=== PATIENT | male | born 1995 ===

== ENCOUNTER 2021-02-01 19:16 | Emergency (ER) | payer SELFPAY ==
[2021-02-01] MEDS ORDERED: BENZONATATE 100 MG CAP PO ONE (21:53)
[2021-02-01] MEDS ORDERED: ACETAMINOPHEN 325 MG TABLET ONE (21:54)
--- NOTE | 2021-02-01 21:55 | RAD REPORT ---
EXAM DESCRIPTION: RAD - Chest Single View - 02/01/2021 9:36 pm CLINICAL HISTORY: COUGH COMPARISON: None TECHNIQUE: AP portable chest image was obtained 02/01/2021 9:36 pm . FINDINGS: Focal airspace opacification present in the right upper lobe and to a lesser degree in the lower left lung field. Trachea is midline. Minimal increase lung parenchymal markings in the medial right base. Heart and vasculature are normal. No measurable pleural effusion and no pneumothorax. No acute bony abnormality seen. No acute aortic findings suspected. IMPRESSION: Bilateral pneumonia. Pattern is nonspecific. In the current clinical environment, COVID-19 pneumonia would be a primary co nsideration and can be correlated testing.
--- NOTE | 2021-02-01 22:16 | ER ---
Nurse's Notes [facility] Name: Stefano Maldonado Age: 25 yrs Sex: Male : 1995 Arrival Date: 02/01/2021 Time: 19:20 Bed 27 Private MD: Diagnosis: Other viral pneumonia Presentation: 02/01 20:06 Chief complaint: Patient states: Pt tested Positive for Covid on 01/28/21, was tested vg[facility] in [place]. About two days ago pt stated started feeling Shortness of breath, states dry cough. Pt stated "I have to lay on my back to be able to breath, if I lay on either side I start coughing and having trouble breathing.". Coronavirus screen: Client denies travel out of the [place] in the last 14 days. Client presents with at least one sign or symptom that may indicate coronavirus-19. Standard/surgical mask placed on the client. Ebola Screen: Patient negative for fever greater than or equal to 101.5 degrees Fahrenheit, and additional compatible Ebola Virus Disease symptoms. Initial Sepsis Screen: Does the patient meet any 2 criteria? No. Patient's initial sepsis screen is negative. Does the patient have a suspected source of infection? No. Patient's initial sepsis screen is negative. Risk Assessment: Do you want to hurt yourself or someone else? Patient reports no desire to harm self or others. Onset of symptoms was January 30, 2021. 20:06 Method Of Arrival: Ambulatory vg1 20:06 Acuity: BK 3 vg1 Triage Assessment: 20:09 General: Appears in no apparent distress. comfortable, Behavior is calm, cooperative. vg1 Pain: Denies pain. Respiratory: Reports shortness of breath on exertion cough that is dry, Airway is patent Respiratory effort is even, unlabored, Onset: The symptoms/episode began/occurred 01/30/21, the patient has mild shortness of breath. Historical: - Allergies: 20:09 No Known Allergies; vg1 - Home Meds: 20:09 None [Active]; vg1 - PMHx: 20:09 None; vg1 - Immunization history:: Adult Immunizations up to date. - Social history:: Smoking status: Patient denies any tobacco usage or history of. Screenin:13 Abuse screen: Denies threats or abuse. Denies injuries from another. Nutritional zb screening: No deficits noted. Tuberculosis screening: No symptoms or risk factors identified. Fall Risk None identified. Assessment: 21:13 General: Appears in no apparent distress. Behavior is calm, cooperative, Reports zb feeling ill for > 3 days, fatigue for >3 days. Pain: Complains of pain in forehead Pain currently is 0 out of 10 on a pain scale. at worst was 6 out of 10 on a pain scale. Quality of pain is described as aching. Neuro: Level of Consciousness is awake, alert, obeys commands, Oriented to person, place, time. Cardiovascular: Reports fatigue, nausea, shortness of breath, Denies chest pain, Capillary refill < 3 seconds Patient's skin is warm and dry. Rhythm is regular. Respiratory: Reports shortness of breath at rest Airway is patent Respiratory effort is even, unlabored, Breath sounds are diminished Onset: The symptoms/episode began/occurred 4 days ago , the patient has mild shortness of breath. GI: Reports diarrhea, nausea, vomiting. Derm: Skin is intact, is healthy with good turgor, Skin is normal. Musculoskeletal: Range of motion: intact in all extremities. 21:17 Reassessment: ECP at bedside. zb 22:15 Reassessment: Patient appears in no apparent distress at this time. Patient and/or zb family updated on plan of care and expected duration. Pain level reassessed. Patient is alert, oriented x 3, equal unlabored respirations, skin warm/dry/pink. ECP at bedside discussing results. Vital Signs: 20:06 BP 132 / 81; Pulse 115; Resp 20; Temp 99.9; Pulse Ox 96% on R/A; Weight 77.11 kg; vg1 Height 5 ft. 8 in. (172.72 cm); Pain 0/10; 21:16 BP 136 / 75; Pulse 91; Resp 16; Pulse Ox 100% on R/A; zb 22:14 BP 110 / 70; Pulse 103; Resp 20; Pulse Ox 98% ; zb 20:06 Body Mass Index 25.85 (77.11 kg, 172.72 cm) vg1 ED Course: 19:20 Patient arrived in ED. wm 20:09 Triage completed. vg1 20:09 Arm band placed on Patient placed in waiting room, Patient notified of wait time. vg1 21:04 Hugo Rudd PA is PHCP. cp 21:04 Praveen Kowalski MD is Attending Physician. cp 21:09 Linda Johnson, RN is Primary Nurse. zb 21:17 Patient has correct armband on for positive identification. Pulse ox on. NIBP on. zb 21:36 XRAY Chest (1 view) In Process Unspecified. EDMS 22:33 No provider procedures requiring assistance completed. Patient did not have IV access zb during this emergency room visit. Administered Medications: 21:34 Drug: Tessalon Perle (benzonatate) 200 mg Route: PO; zb 22:30 Follow up: Response: Marked relief of symptoms zb 21:34 Drug: Tylenol 650 mg Route: PO; zb 22:30 Follow up: Response: No adverse reaction; Marked relief of symptoms; Pain is decreased zb 22:30 Drug: predniSONE 60 mg Route: PO; zb 22:30 Follow up: Response: Medication administered at discharge. zb Outcome: 22:15 Discharge ordered by MD. cp 22:34 Discharged to home ambulatory. zb 22:34 Condition: stable 22:34 Discharge instructions given to patient, Instructed on discharge instructions, follow up and referral plans. medication usage, Demonstrated understanding of instructions, follow-up care, medications, Prescriptions given X 5 22:34 Patient left the ED. zb Signatures: Dispatcher [employer] EDMS Hugo Rudd PA PA cp Garcia, Victoria, RN RN vg1 Linda Johnson, RN RN Vanna Lane
--- NOTE | 2021-02-01 22:16 | EDPHYS ---
Physician Documentation [facility] Name: Stefano Maldonado Age: 25 yrs Sex: Male : 1995 Arrival Date: 02/01/2021 Time: 19:20 Bed 27 Private MD: ED Physician Praveen Kowalski HPI: 02/01 21:30 This 25 yrs old Unknown Male presents to ER via Ambulatory with complaints of Shortness cp Of Breath - POSITIVE Covid Test 01-28-21. 21:30 The patient has shortness of breath with light activity. Onset: The symptoms/episode cp began/occurred gradually. 21:30 Duration: The symptoms are continuous. Associated signs and symptoms: Pertinent cp positives: non-productive cough, Pertinent negatives: chest pain, diaphoresis, fever, vomiting. Severity of symptoms: in the emergency department the symptoms are unchanged despite home interventions. 21:30 Patient reports testing positive for COVID-19 on 01-28-2021. cp Historical: - Allergies: 20:09 No Known Allergies; vg1 - Home Meds: 20:09 None [Active]; vg1 - PMHx: 20:09 None; vg1 - Immunization history:: Adult Immunizations up to date. - Social history:: Smoking status: Patient denies any tobacco usage or history of. ROS: 21:35 Constitutional: Negative for fever. cp 21:35 Eyes: Negative for injury, pain, redness, and discharge. cp 21:35 ENT: Negative for ear pain, sore throat, difficulty swallowing, difficulty handling secretions. 21:35 Cardiovascular: Negative for chest pain, edema, palpitations. 21:35 Respiratory: Positive for cough, with no reported sputum, shortness of breath, on exertion. Negative for wheezing. 21:35 Abdomen/GI: Negative for abdominal pain, nausea, vomiting, and diarrhea. 21:35 Back: Negative for radiated pain. 21:35 Neuro: Negative for altered mental status, headache, loss of consciousness, syncope, weakness. 21:35 All other systems are negative. Exam: 21:40 Constitutional: The patient appears in no acute distress, alert, awake, cp non-diaphoretic, non-toxic, well developed, well nourished. 21:40 Head/Face: Normocephalic, atraumatic. cp 21:40 Eyes: Periorbital structures: appear normal, Conjunctiva: normal, no exudate, no injection, Sclera: no appreciated abnormality, Lids and lashes: appear normal, bilaterally. 21:40 ENT: External ear(s): are unremarkable, Nose: is normal, Mouth: Lips: moist, Oral mucosa: pink and intact, moist, Posterior pharynx: Airway: no evidence of obstruction, patent, Tonsils: no enlargement, no exudate, Uvula: normal, erythema, that is mild. 21:40 Neck: ROM/movement: is normal, is supple, without pain, no range of motions limitations. 21:40 Chest/axilla: Inspection: normal, Palpation: is normal, no crepitus, no tenderness. 21:40 Cardiovascular: Rate: tachycardic, Rhythm: regular, Heart sounds: murmur, not appreciated, Edema: is not appreciated, JVD: is not appreciated. 21:40 Respiratory: the patient does not display signs of respiratory distress, Respirations: normal, no use of accessory muscles, no retractions, no splinting, no tachypnea, labored breathing, is not present, Breath sounds: are clear throughout, no decreased breath sounds, no stridor, no wheezing. 21:40 Abdomen/GI: Exam negative for discomfort, distension, guarding, Inspection: abdomen appears normal. 21:40 Back: pain, is absent, ROM is normal. 21:40 Skin: no rash present. 21:40 Neuro: Orientation: is normal, Mentation: is normal, Motor: moves all fours, strength is normal. Vital Signs: 20:06 BP 132 / 81; Pulse 115; Resp 20; Temp 99.9; Pulse Ox 96% on R/A; Weight 77.11 kg; vg1 Height 5 ft. 8 in. (172.72 cm); Pain 0/10; 21:16 BP 136 / 75; Pulse 91; Resp 16; Pulse Ox 100% on R/A; zb 22:14 BP 110 / 70; Pulse 103; Resp 20; Pulse Ox 98% ; zb 20:06 Body Mass Index 25.85 (77.11 kg, 172.72 cm) vg1 MDM: 21:05 Patient medically screened. 22:15 Data reviewed: vital signs, nurses notes, lab test result(s), radiologic studies, plain cp films. 22:15 Test interpretation: by ED physician or midlevel provider: plain radiologic studies. cp Counseling: I had a detailed discussion with the patient and/or guardian regarding: the historical points, exam findings, and any diagnostic results supporting the discharge/admit diagnosis, lab results, radiology results, to return to the emergency department if symptoms worsen or persist or if there are any questions or concerns that arise at home. Response to treatment: the patient's symptoms have markedly improved after treatment, and as a result, I will discharge patient. ED course: VSS. Patient appears non-toxic and no signs of respiratory distress. Will discharge to home for continued monitoring. 02/01 21:23 Order name: XRAY Chest (1 view); Complete Time: 22:08 cp 02/01 22:09 Interpretation: Report review. cp Administered Medications: 21:34 Drug: Tessalon Perle (benzonatate) 200 mg Route: PO; zb 22:30 Follow up: Response: Marked relief of symptoms zb 21:34 Drug: Tylenol 650 mg Route: PO; zb 22:30 Follow up: Response: No adverse reaction; Marked relief of symptoms; Pain is decreased zb 22:30 Drug: predniSONE 60 mg Route: PO; zb 22:30 Follow up: Response: Medication administered at discharge. zb Disposition: 02/02 03:15 Co-signature as Attending Physician, Praveen Kowalski MD. pkl Disposition Summary: 02/01/21 22:15 Discharge Ordered Location: Home cp Problem: new cp Symptoms: have improved cp Condition: Stable cp Diagnosis - Other viral pneumonia cp Followup: cp - With: Private Physician - When: 2 - 3 days - Reason: Worsening of condition Discharge Instructions: - Discharge Summary Sheet cp - COVID-19 cp - Things to Know about the COVID-19 Pandemic - [facility] cp - 10 Things You Can Do to Manage Your COVID-19 Symptoms at Home - CDC cp Forms: - Medication Reconciliation Form cp - Thank You Letter cp - Antibiotic Education cp - Prescription Opioid Use cp Prescriptions: - albuterol sulfate 90 mcg/actuation Inhalation HFA aerosol inhaler - inhale 2 puff by INHALATION route every 4-6 hours; 1 Inhaler; Refills: 0, cp Product Selection Permitted - ivermectin 3 mg Oral tablet - take 4 tablet by ORAL route every other day; 8 tablet; Refills: 0, Product cp Selection Permitted - Tessalon Perles 100 mg Oral Capsule - take 2 capsule by ORAL route every 8 hours As needed; 30 capsule; Refills: 0, cp Product Selection Permitted - Zithromax Z-Red 250 mg Oral Tablet - take 1 tablet by ORAL route as directed for 5 days Day 1 - take two (2) tablets cp one time. Day 2, 3, 4 , 5 take one (1) tablet once daily.; 6 tablet; Refills: 0, Product Selection Permitted - Prednisone 20 mg Oral Tablet - take 2 tablets by ORAL route once daily for 5 days then take 1 tablet daily for cp 5 days; 15 tablet; Refills: 0, Product Selection Permitted Signatures: Dispatcher [employer] EDPraveen Patel MD MD pkl Hugo Rudd PA PA Linda Shaw RN RN vg1 Linda Johnson RN RN zb
[2021-02-01 22:39] VITALS: TEMP 99.9
[2021-02-01 22:42] VITALS: BP 110/70; O2SAT 98
[2021-02-01] MEDS ORDERED: predniSONE 20 MG TAB ONE (22:48)
== END 2021-02-01 22:34 | disposition home or self-care (01) ==
LOC: ER 19:16
DX: U07.1 COVID-19 (principal); J12.82 Pneumonia due to coronavirus disease 2019
CPT/HCPCS: 71045; 99284; J7512